=== PATIENT | female | born 1975 | race Caucasian/White ===

== ENCOUNTER 2016-05-08 05:26 | Emergency (ER) | payer BC ==
[~2016-05-08] VITALS: Ht 162.6 cm; Wt 117.0 kg
[~2016-05-08 05:26] MED LIST: PRENTAB26 PO
[2016-05-08 05:32] VITALS: TEMP 36.9; Ht 162.6 cm; Wt 117.0 kg
[2016-05-08] MEDS ORDERED: PROPARACAINE HCL 0.5% OP SOLN 15 ML BTL OP STA (06:16)
[2016-05-08] MEDS ORDERED: DIPHTHERIA/TETANUS/PERTUSSIS 0.5 ML SYR/VIAL IM. ONE (06:30)
[2016-05-08] MEDS ORDERED: POLYSOL50 OPL (06:39)
[2016-05-08] MEDS ORDERED: CLR10 PO (06:39)
[2016-05-08] MEDS ORDERED: CARB0.5D28 OPL (06:40)
[2016-05-08] MEDS ORDERED: ARTIOIN2 OPL (06:40)
[2016-05-08] MEDS ORDERED: KETOROLAC TROMETHAMINE 30 MG/ML VIAL IV STA (06:46)
[2016-05-08] MEDS ORDERED: CEFTRIAXONE SOD INJ 1 GM ADDVIAL IV STA (06:46)
[2016-05-08] MEDS ORDERED: CIPROFLOXACIN HCL 0.3% OP SOLN 2.5 ML BTL OP STA ×2 (06:46→07:28)
[2016-05-08] MEDS ORDERED: HOMATROPINE 5% OP SOLN 5 ML BTL OP ONE (07:30)
[2016-05-08 07:36] LABS: BASO % 0.6 %; BASO ABS # 0.03 K/uL (0-0.2); COMPLETE YES; HEMATOCRIT 38.2 % (37-47); IG% 0.2 %; LYMPH % 21.4 %; LYMPH ABS # 1.09 K/uL (1.2-3.4); MEAN CELL VOLUME 84.1 fL (80-100); MEAN CORPUSCULAR HEMOGLOBIN 29.1 pg (25-34); MEAN CORPUSCULAR HGB CONC 34.6 g/dl (32-36); MEAN PLATELET VOLUME 8.9 fL (7.4-10.4); MONO % 3.5 %; NEUT % 72.3 %; PLATELET COUNT 207 K/uL (130-400); RED BLOOD COUNT 4.54 M/uL (4.2-5.4)
[2016-05-08 07:53] LABS: BUN/CREATININE RATIO 15.5 (10-20); CALCIUM 9.7 mg/dl (8.5-10.1); CREATININE 0.98 mg/dl (0.60-1.20); POTASSIUM 3.9 mmol/L (3.5-5.1)
[2016-05-08 08:18] VITALS: BP 151/90; PULSE 70; O2SAT 98
[2016-05-08] MEDS ORDERED: CIPR0.3S OP (08:26)
[2016-05-08] MEDS ORDERED: TRAM-10 PO (08:26)
--- NOTE | 2016-05-08 08:29 | EMERGENCY ROOM VISIT NOTE ---
History First contact with patient: 05:39 Chief Complaint: EYE PAIN Stated Complaint: EYE PAIN History of Present Illness The patient is a 40 year old female who presents to the Emergency Department by private vehicle for evaluation of her LEFT eye pain and irritation. She reports that she initially developed irritation to the eye approximately one week ago. 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 She was placed on antibiotic eyedrops and informed that this was likely an irritation reaction. She has a history of some excess corneal tissue secondary to previous injury. She reports that she occasionally develops conjunctivitis secondary to this. She does wear contacts, but has not worn them for the past week. She is been using the eyedrops, reports that over the past few days she's had increasing redness and tearing to the affected eye. In addition, she complains of photophobia. She complains of pain surrounding her eye as well as the eyebrow and lower eye as well. She denies any fevers or chills. She rates her current discomfort as an 8/10. She has not been able to sleep secondary to discomfort. She denies any headaches, dizziness, lightheadedness, nausea, vomiting, or neck pain/stiffness. Her tetanus status is not up-to-date. Review of Systems A complete 10-point Review of Systems was discussed with the patient, with pertinent positives and negatives listed in the History of Present Illness. All remaining Review of Systems questions can be considered negative unless otherwise specified. Past Medical/Surgical History Medical Problems: (1) History of - section (2) Hypertension (3) OVARIAN CYST NEC/NOS (4) OVARIAN ENDOMETRIOSIS (5) Pneumonia Family History Diabetes mellitus FH: cancer FH: heart disease FHx: lung disease Hypertension Kidney disease or stones Social History Smoking Status: Never Smoker Alcohol Use: none Drug Use: none Marital Status: Housing Status: lives with family Occupation Status: employed Current/Historical Medications Scheduled Artificial Tear Ointment (Refresh Lacri-Lube), 1 APPLN OPL HS Carboxymethylcellulose Sodium (Refresh Tears), DROP OPL UD Ciprofloxacin Hcl (Ophth) (Ciloxan Oph), 1 DROP OP 5XD Multivit/Min/Iron/Fol Ac/Pren ( Vitamin), 1 TAB PO HS Polymyxin/Trimethoprim Oph (Polytrim Oph), 1 DROP OPL QID Scheduled PRN Loratadine (Claritin), 10 MG PO DAILY PRN for ALLERGIES Tramadol (Ultram), 1-2 TAB PO Q4H PRN for Pain Allergies Coded Allergies: Erythromycin (Verified Adverse Reaction, Intermediate, N/V, 05/08/16) Physical Exam Vital Signs Date Time Temp Pulse Resp B/P Pulse Ox O2 Delivery O2 Flow Rate FiO2 05/08/16 08:18 70 18 151/90 98 Room Air 05/08/16 05:32 36.9 85 18 204/101 97 Room Air Right Eye Acuity: with glasses 20/25 Left Eye Acuity: with glasses 20/25 Pain Rating (0-10): 8 Physical Exam VITAL SIGNS - Vital signs and nursing notes were reviewed. GENERAL - 40-year-old female appearing her stated age. Communicates well with provider and answers questions appropriately. HEAD - Normocephalic, Atraumatic. No Gupta's Sign or Raccoon's Eyes. No depressed skull fractures palpable. EYES - PERRL with EOMI bilaterally. Sclera without noticeable foreign body or excoriations. Moderate injection noted in the LEFT eye. Without subconjunctival hemorrhage. Palpebral conjunctiva pink and moist with no injection or discharge noted. Slit lamp examination performed as further described. EARS - No deformities of external structures noted on gross examination bilaterally. Handle of malleus, umbo, cone of light, pars tensa/flaccid all easily visualized. NOSE - Midline and without cyanosis. Without discharge. MOUTH/OROPHARYNX - Without perioral cyanosis. Tongue midline with equal elevation of palate bilaterally. No tonsillar hypertrophy, erythema, or exudates noted. Good dentition noted. NECK - FROM assessed. No cervical lymphadenopathy noted. Medical Decision & Procedures Laboratory Results 05/08/16 07:15 Red Blood Count 4.54, Mean Corpuscular Volume 84.1, Mean Corpuscular Hemoglobin 29.1, Mean Corpuscular Hemoglobin Concent 34.6, Mean Platelet Volume 8.9, Neutrophils (%) (Auto) 72.3, Lymphocytes (%) (Auto) 21.4, Monocytes (%) (Auto) 3.5, Eosinophils (%) (Auto) 2.0, Basophils (%) (Auto) 0.6, Neutrophils # (Auto) 3.69, Lymphocytes # (Auto) 1.09, Monocytes # (Auto) 0.18, Eosinophils # (Auto) 0.10, Basophils # (Auto) 0.03 05/08/16 07:15 Test 05/08/16 07:15 White Blood Count 5.10 K/uL (4.8-10.8) Red Blood Count 4.54 M/uL (4.2-5.4) Hemoglobin 13.2 g/dL (12.0-16.0) Hematocrit 38.2 % (37-47) Mean Corpuscular Volume 84.1 fL (80-100) Mean Corpuscular Hemoglobin 29.1 pg (25-34) Mean Corpuscular Hemoglobin Concent 34.6 g/dl (32-36) Platelet Count 207 K/uL (130-400) Mean Platelet Volume 8.9 fL (7.4-10.4) Neutrophils (%) (Auto) 72.3 % Lymphocytes (%) (Auto) 21.4 % Monocytes (%) (Auto) 3.5 % Eosinophils (%) (Auto) 2.0 % Basophils (%) (Auto) 0.6 % Neutrophils # (Auto) 3.69 K/uL (1.4-6.5) Lymphocytes # (Auto) 1.09 K/uL (1.2-3.4) Monocytes # (Auto) 0.18 K/uL (0.11-0.59) Eosinophils # (Auto) 0.10 K/uL (0-0.5) Basophils # (Auto) 0.03 K/uL (0-0.2) RDW Standard Deviation 39.9 fL (36.4-46.3) RDW Coefficient of Variation 13.1 % (11.5-14.5) Immature Granulocyte % (Auto) 0.2 % Immature Granulocyte # (Auto) 0.01 K/uL (0.00-0.02) Anion Gap 10.0 mmol/L (3-11) Est Creatinine Clear Calc Drug Dose 94.0 ml/min Estimated GFR () 82.5 Estimated GFR (Non- 71.1 BUN/Creatinine Ratio 15.5 (10-20) Calcium Level 9.7 mg/dl (8.5-10.1) Medications Administered Medications (Trade) Dose Ordered Sig/Ramon Route Start Time Stop Time Status Last Admin Dose Admin Proparacaine HCl (Alcaine 0.5% Oph Soln) 2 drops NOW STAT OP 05/08/16 06:16 05/08/16 06:17 DC 05/08/16 06:16 2 DROPS Diphtheria/ Pertussis/Tetanus Vacc (Adacel Inj) 0.5 ml ONCE ONCE IM. 05/08/16 06:30 05/08/16 06:31 DC 05/08/16 06:57 0.5 ML Ceftriaxone Sodium (Rocephin Inj) 1 gm NOW STAT IV 05/08/16 06:46 05/08/16 06:48 DC 05/08/16 07:43 1 GM Ciprofloxacin HCl (Ciprofloxacin 0.3% Op Soln) 2 drops NOW STAT OP 05/08/16 06:46 05/08/16 06:48 DC 05/08/16 07:42 2 DROPS Ketorolac Tromethamine (Toradol Inj) 30 mg NOW STAT IV 05/08/16 06:46 05/08/16 06:48 DC 05/08/16 07:42 30 MG Homatropine HBr (Isopto Homatropine 5% Oph Soln) 1 drops NOW ONCE OP 05/08/16 07:30 05/08/16 07:31 DC 05/08/16 07:52 1 DROPS Procedure Slit Lamp Examination was performed of the LEFT eye(s). Alcaine drops were applied to the affected eye(s) for proper anesthetization. The affected eye(s) were stained with Fluorescein stain to precipitate adequate visualization of any conjunctival/scleral excoriations or ulcers. The patient's face was comfortably rested on the chin guard of the slit lamp apparatus. The lights were dimmed and the affected eye(s) were thoroughly examined under microscopy using the blue light. No uptake was present throughout. Additionally, the eye(s ) were examined under microscopy using the regular light. Close examination revealed some hypertrophic tissue in a circular pattern with raised edges noted in the 7 o'clock position of the LEFT eye just outside of the pupillary rim. No hyphema, hypopyon, or ulceration appreciated. Patient tolerated the procedure well and no complications were met. An Automated Tonometer was utilized to obtain bilateral orbital pressures. The pressures in the LEFT eye were found to be 18, 18, 15, and 18. The pressures in the RIGHT eye were found to be 19, 17, 19, and 16. Patient tolerated the procedure well and no complications were met. ED Course Patient was seen and evaluated by myself. Slit-lamp exam and automated tonometry were performed. Labs were drawn, saline lock in place. The patient was treated with 1 g of Rocephin intravenously. Patient did have moderate relief of symptoms with topical Alcaine drops. Case was discussed with Dr. Okeefe of ophthalmology. He agrees with Ciloxan drops. He suggests placing the patient on homatropine drops once daily for symptomatic relief. He requests that the patient follow-up in office on Tuesday. He does not feel that oral antibiotics are necessary at this point. Laboratory results demonstrate no acute leukocytosis, worrisome anemia, or bandemia. The patient has no significant electrolyte abnormalities. Patient was educated on today's findings and treatment plan. She'll follow up with ophthalmology on Tuesday. She will return to the emergency department sooner for any changing or worsening symptoms. Patient discharged home in good condition. Medical Decision Given the patient's presentation and exam findings, I did elect to perform the above-mentioned workup. The patient presents today with LEFT right eye. This is been treated for the past few days. Her symptoms are worsened recently. She is photophobic. She has no blurry or double vision. Visual acuity is unremarkable otherwise. There is no uptake concerning for ulceration or abrasion, thankfully, however there was the hypertrophic tissue the patient had spoken of which certainly may cause some discomfort in the affected eye. Regardless, the patient will be covered with Ciloxan drops given the ongoing symptoms. I did cover the patient with IV Rocephin in the event that she is developing preseptal cellulitis, however her exam does not suggest this to this point. She did have moderate results symptoms with topical drops which is certainly encouraging. She will be provided homatropine drops to help with dilation. She was provided Ultram to be used for breakthrough pain at home. She will follow up with ophthalmology on Tuesday or return for any changing or worsening symptoms. Patient discharged home afebrile and in good condition. In the evaluation and treatment of this patient, the following differential diagnoses were considered: Corneal Abrasion, Conjunctivitis, Eye Contusion, Globe Injury, Orbital Floor Injury (Blowout Fracture), Corneal Ulcer, Keratitis , Herpes Zoster Ophthalmic, Blepharitis, Orbital Cellulitis, Iritis, Scleritis/ Episcleritis, Uveitis, Temporal Arteritis, Subconjunctival Hemorrhage. [place] Drug Monitoring Program Search Results: patient reviewed within database, no issues identified Impression Primary Impression: Conjunctivitis Additional Impression: Pain, eye, left Departure Information Dispostion Home / Self-Care Condition GOOD Prescriptions Ciprofloxacin Hcl (Ophth) (CILOXAN OPH) 0.3 % Ellen 1 DROP OP 5XD for 7 Days, #1 BTL Prov: José Miguel Bertrand PA-C 05/08/16 Tramadol (Ultram) 50 Mg Tab 1-2 TAB PO Q4H Y for Pain, #14 TAB For Initial Treatment Prov: José Miguel Bertrand PA-C 05/08/16 Referrals Robinson Caballero M.D. (PCP) Peterson Okeefe M.D. Patient Instructions My [facility] Additional Instructions You have been treated in the Emergency Department for your LEFT Eye Conjunctivitis with Irritation. You have been prescribed Ultram to be used for pain control. You cannot drive or consume alcohol while on this medicine. This medicine should only be used for pain that cannot be controlled with azno-std-qhshtba pain medicines. You were prescribed Ciloxan to be used 5 times daily. This is an antibiotic. Stop this medication and contact a medical provider if you were to develop any significant adverse side effects including: wheezing, shortness of breath, passing out, vomiting, or a diffuse rash. Always take antibiotics as directed and COMPLETE the ENTIRE course regardless of the improvement of your symptoms. Please use the homatropine eyedrops once daily to dilate the eyes and help with pain. For pain control, you can use the following lbfs-mov-wuexjue medicines (if >12 yo): - Regular strength (325mg/tab) Tylenol (acetaminophen) 2 tabs every 4-6 hours as needed. Do not exceed 12 tablets in a 24 hour period. Avoid taking more than 4 grams (4000 mg) of Tylenol per day. This includes any other sources of acetaminophen you may take on a regular basis. - Regular strength (200 mg/tab) Advil (ibuprofen) 1-2 tabs every 4-6 hours as needed. Do not exceed a dose of 3200 mg per day. Avoid rubbing your eyes for the next few days as this can cause irritation. Wear sunglasses when outside to help minimize your pain. You should relax in a quiet, dark room to help minimize your symptoms. You should seek evaluation of your LEFT Eye Conjunctivitis and pain by an windows admin following your visit to the Emergency Department. The Emergency Department is not capable of treating optic issues long-term. You should call your windows admin as soon as possible to make an appointment for evaluation of your follow-up care. You have been provided the contact information for Dr. Jt Okeefe to contact his office on Tuesday at 8:30 AM to set up a followup. Return to the emergency department if you develop the following symptoms despite treatment course outlined above: blurry vision, loss of vision, fever, intractable pain, increased redness, swelling, or purulent discharge. Problem Qualifiers Primary Impression: Conjunctivitis Conjunctivitis type: acute Acute conjunctivitis type: unspecified Laterality: left Qualified Codes: H10.32 - Unspecified acute conjunctivitis, left eye
[2016-11-15] MEDS ORDERED: FLUT0.15 NAE (09:18)
[2016-11-15] MEDS ORDERED: LABETALOL PO (09:18)
[2016-11-15] MEDS ORDERED: IBUP-1050 PO (09:18)
[2016-11-15] MEDS ORDERED: MULT-506 PO (09:18)
[2016-11-15] MEDS ORDERED: [UNRECOGNIZED DRUG - REMARK] OPL (09:18)
== END 2016-05-08 08:47 | disposition home or self-care (01) ==
LOC: C.EDB 05:27
DX: H10.32 Unspecified acute conjunctivitis, left eye (principal); H10.9 Unspecified conjunctivitis; I10 Essential (primary) hypertension; Z83.3 Family history of diabetes mellitus; Z82.49 Family history of ischemic heart disease and other diseases of the circulatory system; Z83.6 Family history of other diseases of the respiratory system; Z84.1 Family history of disorders of kidney and ureter

== ENCOUNTER → 2016-05-11 | Outpatient (CLI) | payer BC ==
[~2016-05-11] VITALS: Ht 162.6 cm; Wt 116.6 kg
[~2016-05-11] MED LIST changes: +ARTIOIN2 OPL; +CARB0.5D28 OPL; +CIPR0.3S OP; +CLR10 PO; +FLUT0.15 NAE; +HYDR-5688 PO; +IBUP-1050 PO; +LABETALOL PO; +MULT-506 PO; +POLYSOL50 OPL; +TRAM-10 PO; +[UNRECOGNIZED DRUG - REMARK] OPL
[2016-05-11 15:50] VITALS: BP 160/98; PULSE 103; Ht 162.6 cm; Wt 116.6 kg
== END | disposition home or self-care (01) ==
LOC: C.NEUR 15:16
PROVIDERS: ATTEND Allergy & Immunology Allergy
DX: G47.33 Obstructive sleep apnea (adult) (pediatric) (principal); I10 Essential (primary) hypertension; E66.9 Obesity, unspecified

== ENCOUNTER → 2016-07-26 | Outpatient (CLI) | payer BC ==
[~2016-07-26] MED LIST changes: -CIPR0.3S OP
--- NOTE | 2016-07-26 08:03 | DIAGNOSTIC IMAGING REPORT ---
ABDOMINAL ULTRASOUND, RIGHT UPPER QUADRANT HISTORY: Pain. Nausea. R10.11 Abdominal pain, RUQ (right upper quadrant)pain in RUQULTR. COMPARISON: None. FINDINGS: Pancreas: The pancreas demonstrates a normal echotexture. Liver: Unremarkable. Gallbladder: Small gallbladder polyp. No shadowing gallstones. CBD: 4 mm Right kidney: No hydronephrosis. IMPRESSION: Small gallbladder polyp. Otherwise negative right upper quadrant ultrasound Electronically signed by: Andrew Coon M.D. 07/26/2016 8:02 AM Dictated Date/Time: 07/26/2016 7:59 AM
== END | disposition home or self-care (01) ==
LOC: C.ULTRBC 07:17
PROVIDERS: ATTEND Physician Assistant Medical
DX: R10.11 Right upper quadrant pain (principal); K82.4 Cholesterolosis of gallbladder

== ENCOUNTER → 2016-07-27 | Outpatient (CLI) | payer BC | END | disposition home or self-care (01) | LOC: C.LABBC 15:19 | PROVIDERS: ATTEND Physician Assistant Medical | DX: R10.11 Right upper quadrant pain (principal) ==

== ENCOUNTER → 2016-08-02 | Outpatient (CLI) | payer BC ==
[2016-08-02 15:04] LABS: URINE APPEARANCE CLEAR (CLEAR); URINE BILIRUBIN NEG (NEG); URINE COLOR YELLOW; URINE EPITHELIAL CELL AUTO >30 /lpf (0-5); URINE NITRITE NEG (NEG); URINE PH 7.5 (4.5-7.5); URINE SPECIFIC GRAVITY 1.007 (1.000-1.030); UROBILINOGEN NEG (NEG)
[2016-08-02 15:08] LABS: MANUAL MICROSCOPIC REQUIRED? NO; REVIEW REQ? NO
== END | disposition home or self-care (01) ==
LOC: C.LAB1850 12:45
PROVIDERS: ATTEND Physician Assistant Medical
DX: R39.9 Unspecified symptoms and signs involving the genitourinary system (principal)

== ENCOUNTER → 2016-08-10 | Outpatient (CLI) | payer BC ==
[~2016-08-10] MED LIST changes: +SINCALIDE INJ 2.3 MCG in SODIUM CHLORIDE 0.9% 100ML 100 ML IV SCH
--- NOTE | 2016-08-10 15:53 | DIAGNOSTIC IMAGING REPORT ---
NUCLEAR MEDICINE HEPATOBILIARY SCAN WITH EJECTION FRACTION HISTORY: Pain. Nausea. R10.11 Abdominal pain, RUQ (right upper quadrant)[id number] COMPARISON: Right upper quadrant ultrasound 07/26/2016 TECHNIQUE: Immediately following the intravenous administration of 5.0 mCi Tc-99m Choletec, dynamic anterior abdominal imaging pre/post 2.3 mcg of Kinevac was performed. FINDINGS: Uniform hepatic tracer accumulation is shown. Prompt intrahepatic biliary excretion is seen. The gallbladder, common bile duct, and small bowel are all visualized by 25 minutes minutes. This appearance represents the normal sequence of biliary excretion. The gallbladder ejection fraction following administration of Kinevac was 20% % (normal >35%). IMPRESSION: 1. No evidence for cystic duct obstruction. 2. Gallbladder ejection fraction calculated to be 20% %. This is considered abnormally low Electronically signed by: Andrew Coon M.D. 08/10/2016 3:50 PM Dictated Date/Time: 08/10/2016 3:48 PM
== END | disposition home or self-care (01) ==
LOC: C.NUCL 12:49
PROVIDERS: ATTEND Physician Assistant
DX: R10.11 Right upper quadrant pain (principal)

== ENCOUNTER → 2016-09-24 | Outpatient (CLI) | payer BC ==
[~2016-09-24] MED LIST changes: -SINCALIDE INJ 2.3 MCG in SODIUM CHLORIDE 0.9% 100ML 100 ML IV SCH
--- NOTE | 2016-09-24 16:25 | DIAGNOSTIC IMAGING REPORT ---
LEFT ELBOW 3 VIEWS HISTORY: M77.10 Lateral [id number] COMPARISON: None. FINDINGS: There is no fracture or dislocation. Soft tissues are unremarkable. No radiopaque foreign bodies. No elbow effusion. IMPRESSION: Unremarkable left elbow by conventional radiographic technique. Electronically signed by: Anthony Montgomery M.D. 09/24/2016 4:24 PM Dictated Date/Time: 09/24/2016 4:23 PM
[2016-09-24 17:23] LABS: URINE APPEARANCE CLEAR (CLEAR); URINE BILIRUBIN NEG (NEG); URINE COLOR YELLOW; URINE EPITHELIAL CELL AUTO >30 /lpf (0-5); URINE NITRITE NEG (NEG); URINE SPECIFIC GRAVITY 1.013 (1.000-1.030); UROBILINOGEN NEG (NEG); ZZUR CULT IF INDIC CLEAN CATCH YES
[2016-09-24 17:24] LABS: MANUAL MICROSCOPIC REQUIRED? NO; REVIEW REQ? NO
== END | disposition home or self-care (01) ==
LOC: C.RAD1850 15:59
PROVIDERS: ATTEND Physician Assistant Medical
DX: M77.10 Lateral epicondylitis, unspecified elbow (principal); R32 Unspecified urinary incontinence

== ENCOUNTER → 2016-09-24 | Outpatient (CLI) | payer BC ==
--- NOTE | 2016-09-24 16:16 | MAMMOGRAPHY REPORT ---
BILATERAL DIGITAL SCREENING MAMMOGRAM TOMOSYNTHESIS WITH CAD: 09/24/2016 CLINICAL HISTORY: Routine screening. Patient has no complaints. TECHNIQUE: Breast tomosynthesis in addition to standard 2D mammography was performed. Current study was also evaluated with a Computer Aided Detection (CAD) system. COMPARISON: Comparison is made to exams dated: 09/16/2015 ultrasound, 09/16/2015 mammogram, and 016 mammogram - [facility]. BREAST COMPOSITION: The tissue of both breasts is heterogeneously dense, which may obscure small mas ses. FINDINGS: No suspicious masses, calcifications, or areas of architectural distortion are noted in ei ther breast. There has been no significant interval change compared to prior exams. IMPRESSION: ACR BI-RADS CATEGORY 1: NEGATIVE There is no mammographic evidence of malignancy. A 1 year screening mammogram is recommended. The pa tient will receive written notification of the results. Approximately 10% of breast cancers are not detected with mammography. A negative mammographic report should not delay biopsy if a clinically suggestive mass is present. Holly Ramos M.D. ah/:09/24/2016 15:36:46 Budget Clerk: Cely HOOVER(R)(M), [facility] letter sent: Normal /2 BI-RADS Code: ACR BI-RADS Category 1: Negative
== END | disposition home or self-care (01) ==
LOC: C.MAMM 13:55
PROVIDERS: ATTEND Obstetrics & Gynecology
DX: Z12.31 Encounter for screening mammogram for malignant neoplasm of breast (principal)

== ENCOUNTER → 2016-10-19 | Outpatient (CLI) | payer BC ==
[~2016-10-19] VITALS: Ht 161.3 cm; Wt 116.1 kg
[~2016-10-19] MED LIST changes: -FLUT0.15 NAE; -HYDR-5688 PO; -IBUP-1050 PO; -LABETALOL PO; -MULT-506 PO; -[UNRECOGNIZED DRUG - REMARK] OPL
[2016-10-19 13:05] VITALS: BP 145/83; PULSE 68; Ht 161.3 cm; Wt 116.1 kg
== END | disposition home or self-care (01) ==
LOC: C.NEUR 11:48
PROVIDERS: ATTEND Physician Assistant Medical
DX: G47.33 Obstructive sleep apnea (adult) (pediatric) (principal); E66.9 Obesity, unspecified; S00.31XA Abrasion of nose, initial encounter; X58.XXXA Exposure to other specified factors, initial encounter

== ENCOUNTER → 2016-11-05 | Outpatient (CLI) | payer BC ==
[~2016-11-05] MED LIST changes: +FLUT0.15 NAE; +HYDR-5688 PO; +IBUP-1050 PO; +LABETALOL PO; +MULT-506 PO; +[UNRECOGNIZED DRUG - REMARK] OPL
== END | disposition home or self-care (01) ==
LOC: C.PAPS 09:53
PROVIDERS: ATTEND Obstetrics & Gynecology
DX: Z01.419 Encounter for gynecological examination (general) (routine) without abnormal findings (principal)

== ENCOUNTER 2016-11-18 06:33 | Day surgery (SDC) | payer BC ==
[2016-11-15 09:19] VITALS: BMI 45.0
--- NOTE | 2016-11-15 09:44 | PAT Medication Instructions ---
Service Date Nov 15, 2016. Current Home Medication List Carboxymethylcellulose Sodium (Refresh Tears), DROP OPL UD Fluticasone Propionate (Nasal) (Flonase Allergy Relief), 2 SPRAYS ANYI PRN Ibuprofen (Advil), 600-800 MG PO PRN Loratadine (Claritin), 10 MG PO DAILY PRN for ALLERGIES Multivitamin (Multivitamin), 1 TAB PO HS Trifluridine (Viroptic 1% Oph Soln), 1 DROP OPL Q2H [Labetalol], 100 MG PO BID Medication Instructions For Your Scheduled Surgery - Hold the following medications the morning of surgery: Loratadine (Claritin), 10 MG PO DAILY PRN for ALLERGIES Ibuprofen (Advil), 600-800 MG PO PRN - Take the following medications the morning of surgery with a sip of water OTHERWISE NOTHING TO EAT OR DRINK AFTER MIDNIGHT: [Labetalol], 100 MG PO BID Carboxymethylcellulose Sodium (Refresh Tears), DROP OPL UD Trifluridine (Viroptic 1% Oph Soln), 1 DROP OPL Q2H Fluticasone Propionate (Nasal) (Flonase Allergy Relief), 2 SPRAYS ANYI PRN - Take the following medications as scheduled the night before surgery: [Labetalol], 100 MG PO BID Carboxymethylcellulose Sodium (Refresh Tears), DROP OPL UD Trifluridine (Viroptic 1% Oph Soln), 1 DROP OPL Q2H Fluticasone Propionate (Nasal) (Flonase Allergy Relief), 2 SPRAYS ANYI PRN Multivitamin (Multivitamin), 1 TAB PO HS If you have any questions please call us at [phone] or [phone] or [phone]
[2016-11-15 10:34] LABS: BASO % 0.4 %; BASO ABS # 0.02 K/uL (0-0.2); COMPLETE YES; EOS % 3.3 %; HEMATOCRIT 39.7 % (37-47); IG% 0.4 %; LYMPH % 25.7 %; LYMPH ABS # 1.18 K/uL (1.2-3.4); MEAN CELL VOLUME 85.4 fL (80-100); MEAN CORPUSCULAR HEMOGLOBIN 28.2 pg (25-34); MEAN PLATELET VOLUME 8.9 fL (7.4-10.4); MONO % 4.1 %; NEUT % 66.1 %; PLATELET COUNT 188 K/uL (130-400); RED BLOOD COUNT 4.65 M/uL (4.2-5.4)
[2016-11-15 11:07] LABS: BUN/CREATININE RATIO 17.6 (10-20); CALCIUM 9.5 mg/dl (8.5-10.1); CREATININE 0.88 mg/dl (0.60-1.20)
[~2016-11-18] VITALS: Ht 160 cm; Wt 116.6 kg
[~2016-11-18 06:33] MED LIST changes: -ARTIOIN2 OPL; +CEFAZOLIN 2000 MG/60 ML D5W IV SCH; -HYDR-5688 PO; +LACTATED RINGER'S 1000ML 1,000 ML IV SCH; -POLYSOL50 OPL; -PRENTAB26 PO; -TRAM-10 PO
[2016-11-18 07:09] VITALS: BP 170/76; PULSE 79; TEMP 36.8; O2SAT 96; Ht 160 cm; Wt 116.6 kg
[2016-11-18] MEDS ORDERED: DEXAMETHASONE SOD INJ 4 MG/ML VIAL ONE (07:20)
[2016-11-18] MEDS ORDERED: GLYCOPYRROLATE INJ 0.2 MG/ML VIAL ONE (07:20)
[2016-11-18] MEDS ORDERED: MIDAZOLAM HCL 1 MG/ML 2ML VIAL ONE (07:20)
[2016-11-18] MEDS ORDERED: FENTANYL CITRATE INJ 50 MCG/1 ML 2 ML VIAL ONE ×2 (07:20→09:05)
[2016-11-18] MEDS ORDERED: LIDOCAINE HCL 2% 2 ML VIAL (20MG/ML) ONE (07:20)
[2016-11-18] MEDS ORDERED: NEOSTIGMINE METHYLSULFATE 5 MG/5 ML SYR ONE (07:20)
[2016-11-18] MEDS ORDERED: ROCURONIUM BROMIDE 10 MG/ML 5 ML VIAL ONE (07:20)
[2016-11-18] MEDS ORDERED: PROPOFOL IV EMULSION 10 MG/ML 20 ML VIAL IV ONE (07:20)
[2016-11-18] MEDS ORDERED: ONDANSETRON INJ 2 MG/ML 2 ML VIAL ONE (07:20)
[2016-11-18] MEDS ORDERED: BUPIVACAINE/EPINEPHRINE 0.5% MPF 1:200,000 10 ML VIAL ONE (07:45)
[2016-11-18] MEDS ORDERED: HYDR-5688 PO (07:45)
--- NOTE | 2016-11-18 07:47 | History & Physical Bridge Note ---
H&P Re-Evaluation Bridge Note: I have examined the patient, reviewed the History & Physical and in the interval since the performance of the History & Physical I have noted the following changes of clinical significance: No changes noted
--- NOTE | 2016-11-18 07:48 | Discharge Instructions ---
Discharge Instructions Date of Service Nov 18, 2016. Admission Reason for Admission: Gallbladder Polyp, Biliary Dyskinesia Discharge Discharge Diagnosis / Problem: Gallbladder Polyp, Biliary Dyskinesia Discharge Goals Goal(s): Decrease discomfort, Improve function Activity Recommendations Activity Limitations: as noted below Lifting Limitations: no more than 10 pounds Exercise/Sports Limitations: until after follow-up appointment May Resume Sexual Activity: after follow-up appointment Shower/Bathe: tomorrow . Instructions / Follow-Up Instructions / Follow-Up Please follow-up with Dr. Gonzales in the office in 1-2 weeks. Please call the office at [phone] to make an appointment if you do not have one already. Please call the office at [phone] with any questions or concerns. Current Hospital Diet Patient's current hospital diet: Discharge Diet Recommended Diet: Regular Diet Pending Studies Studies pending at discharge: no Medical Emergencies . Who to Call and When: Medical Emergencies: If at any time you feel your situation is an emergency, please call 911 immediately. . Non-Emergent Contact Non-Emergency issues call your: Primary Care Provider, Surgeon Call Non-Emergent contact if: temperature is above 101.5, your pain is not controlled, wound has increased drainage, wound has increased redness . "Provider Documentation" section prepared by Mimi Ordonez. . VTE Core Measure Inpt VTE Proph given/why not?: SCD's [place] Drug Monitoring Program Search Results: patient reviewed within database, no issues identified
[2016-11-18] MEDS ORDERED: ONDANSETRON INJ 2 MG/ML 2 ML VIAL IV PRN ×2 (08:15→09:00)
[2016-11-18] MEDS ORDERED: FENTANYL CITRATE INJ 50 MCG/1 ML 2 ML VIAL IV PRN (08:15)
[2016-11-18] MEDS ORDERED: ATROPINE SULFATE 0.1 MG/ML 5ML SYR IV PRN (08:15)
[2016-11-18] MEDS ORDERED: EpHEDrine SULFATE INJ 50 MG/ML AMP IV PRN (08:15)
[2016-11-18] MEDS ORDERED: SODIUM CHLORIDE 0.9% 1000ML 1,000 ML IV SCH (08:56)
[2016-11-18] MEDS ORDERED: HYDROCODONE/ACETAMOPHEN 5/325MG TAB PO PRN ×2 (09:00)
--- NOTE | 2016-11-18 09:08 | [facility] Operative Report ---
Operative Report Operative Date Nov 18, 2016. Pre-Operative Diagnosis Biliary Dyskinesia Post-Operative Diagnosis Biliary Dyskinesia Procedure(s) Performed Laparoscopic Cholecystectomy Surgeon Dr Damián Gonzales Meat Soaker Surgeon(s) Mimi Ordonez PA-C Estimated Blood Loss 5cc Findings normal appearing anatomy Specimens As per Surgeon: A. Gallbladder Anesthesia get Complication(s) None Disposition Recovery Room / PACU Description of Procedure After informed consent was obtained the patient was taken the operating suite placed in supine position. After successful intubation the abdomen was sterilely prepped and draped in usual fashion. A super umbilical incisional was made with an 11 blade scalpel. This was carried Down through the soft tissues electrocautery. The Anterior rectus fascia was opened using electrocautery and 2 #0 Vicryl stay sutures were placed. Peritoneum was entered using blunt finger penetration and a finger sweep was performed. A 12 mm Curry trocar was placed and the abdomen was insufflated to 18 mmHg. The camera was inserted in the abdomen examined and the abdomen was examined in 360 . No gross abnormalities were identified. The patient was placed into reverse Trendelenburg position and slightly airplaned to the left. A subxiphoid 5 mm port and 2 right upper quadrant 5 mm ports were placed under direct vision. The gallbladder was grasped and elevated superiorly and laterally. A [place] dissector was used to take down adhesions around the neck of the gallbladder. The cystic duct was skeletonized clipped twice proximally once distally and transected. In similar fashion the cystic artery was skeletonized clipped and divided as well. Electrocautery was used to remove the gallbladder from the gallbladder fossa. It was removed intact and placed into an Endo Catch bag and removed from the camera port site. Irrigation was performed in the upper quadrant. There was adequate hemostasis and no evidence of a bile leak at the end of the procedure. The trochars were all removed and the abdomen was desufflated. The fascia of the camera port was closed using 0 Vicryl in a [id number]-[id number] fashion. All wounds were irrigated and closed using 4-0 Monocryl. Marcaine was injected around for postoperative analgesia and skin glue used as a dressing. Patient was awaken x-rayed and transferred recovery in stable condition I attest to the content of the Intraoperative Record and any orders documented therein. Any exceptions are noted below.
--- NOTE | 2016-11-18 09:43 | Anesthesiology Progress Note ---
Anesthesia Post Op Note Date & Time Nov 18, 2016 at 09:43 Vital Signs Pain Intensity: 3 Vital Signs Past 12 Hours Date Time Temp Pulse Resp B/P (MAP) Pulse Ox O2 Delivery O2 Flow Rate FiO2 11/18/16 09:35 54 12 118/65 97 Nasal Cannula 2 11/18/16 09:25 54 25 115/62 86 Nasal Cannula 2 11/18/16 09:15 68 15 119/60 92 Nasal Cannula 2 11/18/16 09:05 63 16 109/59 98 Nasal Cannula 2 11/18/16 08:59 36.2 70 15 129/58 99 Mask 10 11/18/16 07:09 36.8 79 18 170/76 (107) 96 Room Air Notes Mental Status: alert / awake / arousable, participated in evaluation Pt Amnestic to Procedure: Yes Nausea / Vomiting: adequately controlled Pain: adequately controlled Airway Patency, RR, SpO2: stable & adequate BP & HR: stable & adequate Hydration State: stable & adequate Anesthetic Complications: no major complications apparent
[2016-11-18] MEDS ORDERED: HYDROCODONE/ACETAMOPHEN 5/325MG TAB ONE (10:16)
[2016-11-18 11:00] VITALS: BP 137/65; PULSE 71; TEMP 36.7; O2SAT 94
[2016-11-18 11:30] VITALS: BP 191/87; PULSE 84; O2SAT 93
[2016-11-18 12:16] VITALS: BP 154/77; PULSE 63; O2SAT 95
== END 2016-11-18 12:29 | disposition home or self-care (01) ==
LOC: C.ACU 06:33
PROVIDERS: ATTEND Surgery
DX: K82.8 Other specified diseases of gallbladder (principal); I10 Essential (primary) hypertension; E66.9 Obesity, unspecified; G47.33 Obstructive sleep apnea (adult) (pediatric); Z85.828 Personal history of other malignant neoplasm of skin; Z82.49 Family history of ischemic heart disease and other diseases of the circulatory system; Z80.6 Family history of leukemia; Z83.3 Family history of diabetes mellitus; Z80.3 Family history of malignant neoplasm of breast; K21.9 Gastro-esophageal reflux disease without esophagitis; E66.01 Morbid (severe) obesity due to excess calories

== ENCOUNTER → 2017-04-05 | Outpatient (CLI) | payer BC ==
[~2017-04-05] MED LIST changes: -CEFAZOLIN 2000 MG/60 ML D5W IV SCH; -LACTATED RINGER'S 1000ML 1,000 ML IV SCH
[2017-04-05 11:22] LABS: BLOOD UREA NITROGEN 15 mg/dl (7-18); BUN/CREATININE RATIO 16.9 (10-20); CALCIUM 9.3 mg/dl (8.5-10.1); CARBON DIOXIDE 25 mmol/L (21-32); CHLORIDE 105 mmol/L (98-107); CHOLESTEROL 197 mg/dl (0-200); CREATININE 0.89 mg/dl (0.60-1.20); GLUCOSE 96 mg/dl (70-99); POTASSIUM 3.9 mmol/L (3.5-5.1); SODIUM 136 mmol/L (136-145); TRIGLYCERIDES 148 mg/dl (0-150); VERY LOW DENSITY LIPOPROT CALC 30 mg/dl
[2017-04-05 11:41] LABS: CHOLESTEROL/HDL RATIO 4.4; HDL CHOLESTEROL 45 mg/dl; LDL CHOLESTEROL CALCULATED 122 mg/dl
== END | disposition home or self-care (01) ==
LOC: C.LABBC 08:18
PROVIDERS: ATTEND Internal Medicine
DX: Z13.220 Encounter for screening for lipoid disorders (principal); Z13.1 Encounter for screening for diabetes mellitus